=== PATIENT | male | born 1990 | race African-American/Black ===

== ENCOUNTER 2023-07-07 02:57 | Emergency (ER) | payer MEDICAID ==
[~2023-07-07] VITALS: Ht 190.5 cm; Wt 80.0 kg
[2023-07-07 02:58] VITALS: TEMP 97.9; O2SAT 100
[2023-07-07] MEDS: MORPHINE SULFATE 4 MG/ML CPJ (NOT FOR IM USE) IV ONE (03:44)
[2023-07-07] MEDS: ACETAMINOPHEN 325MG TABLET PO ONE (03:45)
[2023-07-07] MEDS: ONDANSETRON HCL 4MG/2ML INJ IV ONE (03:45)
[2023-07-07] MEDS ORDERED: MORPHINE SULFATE 4 MG/ML CPJ (NOT FOR IM USE) IV ONE (04:00)
[2023-07-07] MEDS: SODIUM CHLORIDE 0.9% 1,000 ML IV ONE (04:00)
[2023-07-07] MEDS: KETAMINE HCL 50 MG/ML 10ML IV ONE (04:05)
[2023-07-07] MEDS: PROPOFOL 200MG/20ML VIAL IV ONE (04:05)
[2023-07-07 07:00] VITALS: BP 124/64; PULSE 64; RESP 15
[2023-07-07] MEDS ORDERED: HYDR-4001 MT (07:18)
== END 2023-07-07 07:50 | disposition home or self-care (01) ==
LOC: ER 02:57
DX: S53.105A Unspecified dislocation of left ulnohumeral joint, initial encounter (principal); S01.01XA Laceration without foreign body of scalp, initial encounter; Z00.00 Encounter for general adult medical examination without abnormal findings; Y04.0XXA Assault by unarmed brawl or fight, initial encounter; Y93.89 Activity, other specified; Y92.89 Other specified places as the place of occurrence of the external cause; Y99.8 Other external cause status
CPT/HCPCS: 73070; 70450; 12001; 24600; 96361; 96374; 96375; 99152; 99285; J3490; J2405; J2704; J2270; J7030; Z7610 ×3